=== PATIENT | female | born 1935 | race Caucasian/White ===

== ENCOUNTER 2018-01-26 16:09 | Outpatient (REF) | payer MEDICARE, BC, SELFPAY ==
[2018-01-26 20:01] LABS: HCT 36.7 % (36.0-46.0); HGB 11.8 g/dL (12.0-15.5); Mean Corp. HGB Concentration 32.2 g/dL (32.0-36.0); Mean Corpuscular Hemoglobin 32.1 pg (27.0-33.0); Mean Corpuscular Volume 99.7 fL (80-95); Mean Platelet Volume 11.8 fL (8.0-11.0); Platelet Count 149 x1000/uL (130-400); RBC 3.68 m/cumm (4.00-5.20); RBC Distribution Width 12.9 % (11.7-14.6); White Blood Cell Count 4.14 k/cumm (4.4-10.8)
[2018-01-26 20:15] LABS: Iron 46 ug/dL (50-175); Total Iron Binding Capacity 233 ug/dL (250-450); Transferrin Sat 20 % (15-50)
[2018-01-26 20:38] LABS: Anion Gap 10.4 mmol/L (3-11); BUN 26 mg/dL (7-18); CO2 24.6 mmol/L (21.0-32.0); CREATININE 1.05 mg/dL (0.55-1.02); Calcium 9.3 mg/dL (8.5-10.1); Chloride 109 mmol/L (98-107); Glucose 200 mg/dL (70-100); Potassium 3.7 mmol/L (3.5-5.1); Sodium 144 mmol/L (136-145); TSH 1.97 uIU/mL (0.358-3.74)
[2018-01-26 21:47] LABS: ESR 29 MM/HR (0-30)
[2018-01-26 22:51] LABS: Vitamin B12 824 pg/mL (193-986)
[2018-01-27 09:19] LABS: Vitamin D 25 Total 124.5 ng/ml (30-100)
== END 2018-01-26 16:29 ==
LOC: NCHCN 16:09
PROVIDERS: PCP Internal Medicine; Visit Provider Internal Medicine
DX: G31.84 Mild cognitive impairment of uncertain or unknown etiology (principal); M35.3 Polymyalgia rheumatica; M81.0 Age-related osteoporosis without current pathological fracture; Z95.2 Presence of prosthetic heart valve
CPT/HCPCS: 80048; 82306; 85027; 85652; 82607; 83540; 83550; 84443

== ENCOUNTER 2018-03-28 13:09 | Outpatient (REF) | payer MEDICARE, BC, SELFPAY ==
[2018-03-28 21:12] LABS: Vitamin D 25 Total 107.8 ng/ml (30-100)
== END 2018-03-28 13:29 ==
LOC: NCHCN 13:09
PROVIDERS: PCP Internal Medicine; Visit Provider Internal Medicine
DX: M81.0 Age-related osteoporosis without current pathological fracture (principal)
CPT/HCPCS: 82306

== ENCOUNTER 2018-04-04 16:06 | Outpatient (REF) | payer MEDICARE, BC, SELFPAY ==
[2018-04-06 11:02] LABS: HSV 1 DNA Result Negative; HSV 2 DNA Result Negative
[2018-04-06 14:24] LABS: Varicella Zoster DNA Result POSITIVE
== END 2018-04-04 16:26 ==
LOC: NCHCN 16:06
PROVIDERS: PCP Internal Medicine; Visit Provider Nurse Practitioner Family
DX: N89.9 Noninflammatory disorder of vagina, unspecified (principal); Z11.59 Encounter for screening for other viral diseases
CPT/HCPCS: 87529; 87798; 87070; 87205; 87480; 87510; 87660

== ENCOUNTER 2018-07-27 16:25 | Outpatient (REF) | payer MEDICARE, BC, SELFPAY ==
[2018-07-27 20:47] LABS: HCT 33.6 % (36.0-46.0); HGB 10.8 g/dL (12.0-15.5); Mean Corp. HGB Concentration 32.1 g/dL (32.0-36.0); Mean Corpuscular Hemoglobin 32.5 pg (27.0-33.0); Mean Corpuscular Volume 101.2 fL (80-95); Mean Platelet Volume 11.7 fL (8.0-11.0); Platelet Count 153 x1000/uL (130-400); RBC 3.32 m/cumm (4.00-5.20); RBC Distribution Width 12.4 % (11.7-14.6); White Blood Cell Count 3.41 k/cumm (4.4-10.8)
[2018-07-27 22:00] LABS: ESR 20 MM/HR (0-30)
== END 2018-07-27 16:45 ==
LOC: NCHCN 16:25
PROVIDERS: PCP Internal Medicine; Visit Provider Internal Medicine
DX: D64.9 Anemia, unspecified (principal); R42 Dizziness and giddiness; M35.3 Polymyalgia rheumatica
CPT/HCPCS: 85027; 85652; 86140

== ENCOUNTER 2019-01-05 12:03 | Outpatient (REF) | payer MEDICARE, BC, SELFPAY ==
[2019-01-05 19:27] LABS: Abs Immature Grans 0.01 k/cumm (0.0-0.09); Absolute Basophil Count 0.01 k/cumm (0.0-0.2); Absolute Eosinophil Count 0.12 k/cumm (0.0-0.7); Absolute Lymphocyte Count 1.33 k/cumm (1.2-3.4); Absolute Monocyte Count 0.42 k/cumm (0.11-0.7); Absolute Neutrophil Count 3.57 k/cumm (1.2-6.7); Basophils % 0.2; Eosinophils % 2.2; HCT 35.8 % (36.0-46.0); HGB 11.5 g/dL (12.0-15.5); Immature Grans % 0.2; Lymphocytes % 24.4; Mean Corp. HGB Concentration 32.1 g/dL (32.0-36.0); Mean Corpuscular Hemoglobin 31.7 pg (27.0-33.0); Mean Corpuscular Volume 98.6 fL (80-95); Mean Platelet Volume 11.4 fL (8.0-11.0); Monocytes % 7.7; Neutrophils % 65.3; Platelet Count 155 x1000/uL (130-400); RBC 3.63 m/cumm (4.00-5.20); White Blood Cell Count 5.46 k/cumm (4.4-10.8)
[2019-01-05 19:54] LABS: Ferritin 157 ng/mL (8-388); TSH 1.98 uIU/mL (0.36-3.74)
[2019-01-10 09:59] LABS: Methylmalonic Acid 0.16 nmol/mL (<=0.40)
== END 2019-01-05 12:23 ==
LOC: NCHCN 12:03
PROVIDERS: PCP Internal Medicine; Visit Provider Internal Medicine
DX: K90.0 Celiac disease (principal); I10 Essential (primary) hypertension; R53.83 Other fatigue; D64.9 Anemia, unspecified
CPT/HCPCS: 80186; 83090; 82728; 84443; 85025

== ENCOUNTER 2019-05-22 16:27 | Outpatient (REF) | payer MEDICARE, BC, SELFPAY | END 2019-05-22 16:47 | LOC: NCHCN 16:27 | PROVIDERS: PCP Internal Medicine; Visit Provider Nurse Practitioner Family | DX: N89.8 Other specified noninflammatory disorders of vagina (principal) | CPT/HCPCS: 87480; 87510; 87660 ==

== ENCOUNTER 2019-09-21 16:06 | Outpatient (REF) | payer MEDICARE, BC, SELFPAY ==
[2019-09-21 19:53] LABS: HCT 34.5 % (36.0-46.0); HGB 11.3 g/dL (11.2-15.7); MCH 32.7 pg (27.0-33.0); MCHC 32.8 % (32.0-36.0); MCV 99.7 fL (80-95); MPV 11.9 fL (8.0-11.0); Platelet Count 138 10^3/uL (130-400); RBC 3.46 10^6/uL (3.93-5.22); RDW 12.9 % (11.7-14.6); RDW-SD 46.8 fL
[2019-09-21 20:43] LABS: Anion Gap 9.7 mmol/L (3-11); BUN 20 mg/dL (7-18); CO2 25.3 mmol/L (21.0-32.0); CREATININE 1.06 mg/dL (0.55-1.02); Calcium 8.6 mg/dL (8.5-10.1); Chloride 108 mmol/L (98-107); Estimated GFR 49.51 (mL/min/1.73m2); Glucose 90 mg/dL (74-106); Potassium 4.3 mmol/L (3.5-5.1); Sodium 143 mmol/L (136-145); TSH 1.62 uIU/mL (0.36-3.74); Vitamin B12 899 pg/mL (193-986)
[2019-09-21 21:13] LABS: NT-proBNP 2050 pg/mL (<300)
== END 2019-09-21 16:26 ==
LOC: NCHCN 16:06
PROVIDERS: PCP Internal Medicine; Visit Provider Internal Medicine
DX: R06.09 Other forms of dyspnea (principal); I48.0 Paroxysmal atrial fibrillation; D64.9 Anemia, unspecified; J98.4 Other disorders of lung
CPT/HCPCS: 80048; 85027; 82607; 83880; 84443

== ENCOUNTER 2020-03-21 17:10 | Outpatient (REF) | payer MEDICARE, BC, SELFPAY ==
[2020-03-21 19:19] LABS: HCT 34.6 % (36.0-46.0); HGB 11.5 g/dL (11.2-15.7); MCH 32.2 pg (27.0-33.0); MCHC 33.2 % (32.0-36.0); MCV 96.9 fL (80-95); MPV 11.4 fL (8.0-11.0); Platelet Count 143 10^3/uL (130-400); RBC 3.57 10^6/uL (3.93-5.22); RDW 12.6 % (11.7-14.6); RDW-SD 45.2 fL; WBC 5.41 10^3/uL (4.4-10.8)
[2020-03-21 19:30] LABS: Albumin 3.7 g/dL (3.4-5.0); Anion Gap 11.6 mmol/L (3-11); BUN 40 mg/dL (7-18); CO2 23.4 mmol/L (21.0-32.0); CREATININE 1.2 mg/dL (0.55-1.02); Calcium 9.2 mg/dL (8.5-10.1); Chloride 107 mmol/L (98-107); Glucose 103 mg/dL (74-106); NT-proBNP 1514 pg/mL (<300); PHOSPHORUS 3.8 mg/dL (2.6-4.7); Potassium 3.3 mmol/L (3.5-5.1); Sodium 142 mmol/L (136-145)
== END 2020-03-21 17:30 ==
LOC: NCHCN 17:10
PROVIDERS: PCP Internal Medicine; Visit Provider Internal Medicine
DX: I50.9 Heart failure, unspecified (principal); D64.9 Anemia, unspecified
CPT/HCPCS: 80069; 85027; 83880

== ENCOUNTER 2020-04-12 18:10 | Outpatient (REF) | payer MEDICARE, BC, SELFPAY ==
[2020-04-12 16:08] LABS: Potassium 5.2 mmol/L (3.5-5.1)
== END 2020-04-12 18:11 | disposition home or self-care (01) ==
LOC: NCHCN 18:10
PROVIDERS: PCP Internal Medicine; Visit Provider Internal Medicine
DX: E87.6 Hypokalemia (principal)
CPT/HCPCS: 84132

== ENCOUNTER 2020-04-26 18:32 | Outpatient (REF) | payer MEDICARE, BC, SELFPAY ==
[2020-04-26 18:38] LABS: Abs Immature Grans 0.01 10^3/uL (0.0-0.06); Absolute Basophil Count 0.02 10^3/uL (0.0-0.2); Absolute Eosinophil Count 0.06 10^3/uL (0.0-0.7); Absolute Lymphocyte Count 1.62 10^3/uL (1.2-3.4); Absolute Monocyte Count 0.46 10^3/uL (0.1-0.8); Absolute Neutrophil Count 3.53 10^3/uL (1.2-6.7); Basophils % 0.4; Eosinophils % 1.1; HGB 11.7 g/dL (11.2-15.7); Immature Grans % 0.2; Lymphocytes % 28.4; MCH 32.6 pg (27.0-33.0); MCHC 32.5 % (32.0-36.0); MCV 100.3 fL (80-95); MPV 10.2 fL (8.0-11.0); Monocytes % 8.1; Neutrophils % 61.8; Nucleated RBC 0 %; Platelet Count 171 10^3/uL (130-400); RBC 3.59 10^6/uL (3.93-5.22); RDW 12.1 % (11.7-14.6); RDW-SD 45.3 fL
[2020-04-26 19:34] LABS: ALT 25 U/L (14-59); AST 17 U/L (15-37); Albumin 3.6 g/dL (3.4-5.0); Alkaline Phosphatase 67 U/L (46-116); Anion Gap 11.3 mmol/L (3-11); BUN 48 mg/dL (7-18); Bilirubin, Total 0.3 mg/dL (0.2-1.0); CO2 20.7 mmol/L (21.0-32.0); CREATININE 1.6 mg/dL (0.55-1.02); Calcium 9.5 mg/dL (8.5-10.1); Chloride 109 mmol/L (98-107); Estimated GFR 30.78 (mL/min/1.73m2); Glucose 90 mg/dL (74-106); Potassium 5.1 mmol/L (3.5-5.1); Sodium 141 mmol/L (136-145); Total Protein 7.3 g/dL (6.4-8.2)
== END 2020-04-26 18:33 | disposition home or self-care (01) ==
LOC: NCHCN 18:32
PROVIDERS: PCP Internal Medicine; Visit Provider Physician Assistant
DX: R19.7 Diarrhea, unspecified (principal)
CPT/HCPCS: 80053; 85025

== ENCOUNTER 2020-07-02 14:44 | Outpatient (REF) | payer MEDICARE, BC, SELFPAY ==
[2020-07-02 19:05] LABS: Anion Gap 8.7 mmol/L (3-11); BUN 34 mg/dL (7-18); CO2 29.3 mmol/L (21.0-32.0); CREATININE 1.4 mg/dL (0.55-1.02); Calcium 9.1 mg/dL (8.5-10.1); Chloride 104 mmol/L (98-107); Estimated GFR 35.91 (mL/min/1.73m2); Glucose 172 mg/dL (74-106); Potassium 4.5 mmol/L (3.5-5.1); Sodium 142 mmol/L (136-145)
== END 2020-07-02 14:45 | disposition home or self-care (01) ==
LOC: NCHCN 14:44
PROVIDERS: PCP Internal Medicine; Visit Provider Internal Medicine
DX: I10 Essential (primary) hypertension (principal)
CPT/HCPCS: 80048

== ENCOUNTER 2021-07-04 18:35 | Outpatient (REF) | payer MEDICARE, SELFPAY ==
[2021-07-04 19:00] LABS: HCT 36.3 % (36.0-46.0); HGB 11.7 g/dL (11.2-15.7); MCH 33.1 pg (27.0-33.0); MCHC 32.2 % (32.0-36.0); MCV 103 fL (80-95); MPV 11.3 fL (8.0-11.0); Platelet Count 139 10^3/uL (130-400); RBC 3.54 10^6/uL (3.93-5.22); RDW 12.9 % (11.7-14.6); RDW-SD 48.7 fL; WBC 8.17 10^3/uL (4.4-10.8)
[2021-07-04 19:03] LABS: Albumin 3.5 g/dL (3.4-5.0); BUN 35 mg/dL (7-18); CREATININE 1.3 mg/dL (0.55-1.02); Calcium 8.4 mg/dL (8.5-10.1); Chloride 108 mmol/L (98-107); Estimated GFR 39.02 (mL/min/1.73m2); Glucose 100 mg/dL (74-106); Magnesium 2.9 mg/dL (1.8-2.4); PHOSPHORUS 3.9 mg/dL (2.6-4.7); Potassium 4.4 mmol/L (3.5-5.1); Sodium 141 mmol/L (136-145)
== END 2021-07-04 18:36 | disposition home or self-care (01) ==
LOC: NCHCN 18:35
PROVIDERS: PCP Internal Medicine; Visit Provider Internal Medicine
DX: I10 Essential (primary) hypertension (principal); I50.9 Heart failure, unspecified; R10.32 Left lower quadrant pain
CPT/HCPCS: 80069; 85027; 83735

== ENCOUNTER 2021-12-24 17:51 | Outpatient (REF) | payer MEDICARE, SELFPAY ==
[2021-12-24 20:36] LABS: HCT 38.4 % (36.0-46.0); HGB 12.3 g/dL (11.2-15.7); MCH 32.4 pg (27.0-33.0); MCV 101 fL (80-95); MPV 11.1 fL (8.0-11.0); Platelet Count 136 10^3/uL (130-400); RDW 13.2 % (11.7-14.6); WBC 5.57 10^3/uL (4.4-10.8)
[2021-12-24 20:40] LABS: ALT 19 U/L (14-59); AST 21 U/L (15-37); Albumin 3.8 g/dL (3.4-5.0); Alkaline Phosphatase 81 U/L (46-116); Anion Gap 7.5 mmol/L (3-11); BUN 38 mg/dL (7-18); Bilirubin, Total 0.3 mg/dL (0.2-1.0); CO2 24.5 mmol/L (21.0-32.0); CREATININE 1.5 mg/dL (0.55-1.02); Calcium 8.8 mg/dL (8.5-10.1); Chloride 108 mmol/L (98-107); Estimated GFR 33.94 (mL/min/1.73m2); Glucose 93 mg/dL (74-106); Lipase 381 U/L (73-393); Potassium 4.5 mmol/L (3.5-5.1); Sodium 140 mmol/L (136-145); Total Protein 7.8 g/dL (6.4-8.2)
== END 2021-12-24 17:52 | disposition home or self-care (01) ==
LOC: NCHCN 17:51
PROVIDERS: PCP Internal Medicine; Visit Provider Internal Medicine
DX: R11.0 Nausea (principal); I50.9 Heart failure, unspecified; R42 Dizziness and giddiness
CPT/HCPCS: 80053; 83690; 85027

== ENCOUNTER 2022-12-24 14:14 | Outpatient (REF) | payer MEDICARE, BC, SELFPAY ==
[2022-12-24 19:12] LABS: Abs Immature Grans 0.01 10^3/uL (0.0-0.06); Absolute Basophil Count 0.02 10^3/uL (0.0-0.2); Absolute Eosinophil Count 0.09 10^3/uL (0.0-0.7); Absolute Lymphocyte Count 1.52 10^3/uL (1.2-3.4); Absolute Monocyte Count 0.36 10^3/uL (0.1-0.8); Absolute Neutrophil Count 3.62 10^3/uL (1.2-6.7); Basophils % 0.4; Eosinophils % 1.6; HCT 38.9 % (36.0-46.0); HGB 12.8 g/dL (11.2-15.7); Immature Grans % 0.2; MCH 33.2 pg (27.0-33.0); MCHC 32.9 % (32.0-36.0); MCV 101 fL (80-95); MPV 11.3 fL (8.0-11.0); Monocytes % 6.4; Neutrophils % 64.4; Platelet Count 138 10^3/uL (130-400); RBC 3.86 10^6/uL (3.93-5.22); RDW 12.8 % (11.7-14.6); RDW-SD 48.2 fL; WBC 5.62 10^3/uL (4.4-10.8)
[2022-12-24 19:37] LABS: ALT 19 U/L (14-59); AST 23 U/L (15-37); Albumin 3.6 g/dL (3.4-5.0); Alkaline Phosphatase 88 U/L (46-116); Anion Gap 5.5 mmol/L (3-11); BUN 20 mg/dL (7-18); Bilirubin, Total 0.4 mg/dL (0.2-1.0); CO2 27.5 mmol/L (21.0-32.0); CREATININE 1.1 mg/dL (0.55-1.02); Calcium 9.3 mg/dL (8.5-10.1); Chloride 106 mmol/L (98-107); Estimated GFR 48.94 (mL/min/1.73m2); Glucose 100 mg/dL (74-106); Potassium 4.8 mmol/L (3.5-5.1); Sodium 139 mmol/L (136-145); Total Protein 7.5 g/dL (6.4-8.2)
[2022-12-24 19:41] LABS: NT-proBNP 1864 pg/mL (<300)
== END 2022-12-24 14:15 | disposition home or self-care (01) ==
LOC: NCHCN 14:14
PROVIDERS: PCP Internal Medicine; Visit Provider Internal Medicine
DX: I50.9 Heart failure, unspecified (principal); Z79.01 Long term (current) use of anticoagulants
CPT/HCPCS: 80053; 83880; 85025

== ENCOUNTER 2023-09-01 17:20 | Outpatient (REF) | payer MEDICARE, BC, SELFPAY ==
[2023-09-01 20:37] LABS: Anion Gap 6.4 mmol/L (3-11); BUN 25 mg/dL (7-18); CO2 28.6 mmol/L (21.0-32.0); CREATININE 1.1 mg/dL (0.55-1.02); Calcium 9.4 mg/dL (8.5-10.1); Chloride 105 mmol/L (98-107); Estimated GFR 48.94 (mL/min/1.73m2); Glucose 111 mg/dL (74-106); NT-proBNP 3122 pg/mL (<300); Potassium 4.6 mmol/L (3.5-5.1); Sodium 140 mmol/L (136-145)
== END 2023-09-01 17:21 | disposition home or self-care (01) ==
LOC: NCHCN 17:20
PROVIDERS: PCP Internal Medicine; Visit Provider Physician Assistant
DX: I50.9 Heart failure, unspecified (principal)
CPT/HCPCS: 80048; 83880

== ENCOUNTER 2023-12-01 17:19 | Emergency (ER) | payer MEDICARE, BC, SELFPAY ==
[2023-12-01 17:27] VITALS: BP 184/85; PULSE 80; RESP 24; TEMP 36.3; O2SAT 97
--- NOTE | 2023-12-01 17:58 | W.ED.GENAD ---
Discharge Plan Disposition Specific Acute Inpt Facility: [facility] Condition: Stable Discharge Details Chief Complaint: Urinary Clinical Impression: Acute urinary retention Primary Care Provider: Wil Suarez ED Provider: Omega Robles Home Meds and New Rx's Prescriptions: No Action Eliquis 2.5 mg tablet 2.5 mg PO BID metoprolol tartrate 100 MG tablet 100 mg PO BID alendronate [Fosamax] 70 MG tablet 70 mg PO .WEEKLY losartan-hydrochlorothiazide 1 EACH tablet 1 tab PO DAILY HPI General Mode of arrival: ambulatory. Date/Time Provider Initiated Documentation: 12/01/23 17:26. Limitations to Documentation: no limitations. Information obtained by: patient. History of Present Illness 88 year old F presents to the emergency department with the chief complaint of Unable to catheterize herself, described as moderate, Patient started experiencing this day(s) (1) and it has been constant. No relieving factors improve symptom(s), No exacerbating factors reported . Patient notes no other symptoms.. Patient did receive the following treatments prior to arrival, none Related Data Home Medications ?Medication ?Instructions ?Recorded ?Confirmed alendronate 70 mg tablet (Fosamax) 70 mg PO .WEEKLY 09/13/12 12/01/23 losartan 100 1 tab PO DAILY 09/13/12 12/01/23 mg-hydrochlorothiazide 25 mg tablet metoprolol tartrate 100 mg tablet 100 mg PO BID 09/13/12 12/01/23 apixaban 2.5 mg tablet (Eliquis) 2.5 mg PO BID 11/28/20 12/01/23 Allergies Allergy/AdvReac Type Severity Reaction Status Date / Time No Known Allergies Allergy Unverified 12/01/23 18:31 General Stated Complaint: Urinary CHINYERE: 3 Review of Systems All systems reviewed & are unremarkable except as noted in HPI and below Constitutional Constitutional: Denies chills, Denies fever(s) and Denies weakness Cardiovascular Cardiovascular: Denies chest pain and Denies dyspnea Respiratory Respiratory: Denies cough and Denies dyspnea Gastrointestinal Gastrointestinal: Denies nausea and Denies vomiting Integumentary/Breasts Skin/Breast: Denies rash Neurologic Neurologic: Denies weakness Exam Const General: no acute distress Orientation: alert HENMT Head: normal to inspection Ears: external ears normal General nose exam: external nose normal Mouth: moist mucous membranes Eyes General: appearance normal, both eyes and all related structures Neck Neck: normal visual inspection Resp Effort & Inspection: normal respiratory effort and able to speak in complete sentences Cardio Rate: regular rate GI Palpation: nontender Skin General skin exam: no rashes or lesions noted Neuro General: patient alert and patient oriented x3 Extrem General: normal to inspection Psych Mental Status: mental status grossly normal Course Vital Signs Vital signs: Vital Signs Temperature 36.3 C L 12/01/23 17: Pulse 80 12/01/23 17: Respiratory Rate 24 12/01/23 17:27 Blood Pressure 184/85 H 12/01/23 17:27 Pulse Oximetry 97 12/01/23 17:27 Temperature 36.3 C L 12/01/23 17: Pulse 80 12/01/23 17: Respiratory Rate 24 12/01/23 17:27 Blood Pressure 184/85 H 12/01/23 17:27 Blood Pressure Position Sitting 12/01/23 17:27 Pulse Oximetry 97 12/01/23 17:27 Medical Decision Making 88-year-old female who had a history of bladder cancer and had her bladder removed per patient and then had a makeshift bladder made in her abdomen for which she catheterized over abdominal wall, comes in with inability to catheterize herself since last night. She denies any fevers or severe pain. She has no vomiting. The area of the stoma is on the right lateral abdomen, there is no erythema or warmth. No drainage. There is distention of the abdomen in this area which I suspect is from distended surgical bladder, Will have nursing attempt to catheterize this to retrieve urine. despite inserting a 12 frrench and 14 nigerian urinary catheter into the stoma 2-3 inches no urine would come out, will obtain CT to evaluate for any potential anatomic abnormalities CT shows large distended bladder pouch in the right abdomen with hydronephrosis of the left kidney.Patient is stable, she does state that this similar issue happened 3 years ago where she went to [facility] and then had to be transferred to [facility] and have an operation to repair it. Will have nursing attempt again to recannulized but I feel like the connection with the stoma and the bladder is been disrupted so we will reach out to [facility] urology for potential transfer. nursing briefly able to get some urine out but then it stopped, unable to recatheterize. Discussed case with Dr. Garcia from [facility] who accepts to their ED for potential IR drainage. Imaging Data Radiologic Study: Attestation: I personally reviewed and interpreted this imaging study as follows: Imaging: CT Scan Radiologist's impression: IMPRESSION: 1. Urinary diversion with a large distended bladder pouch in the right abdomen as detailed above. 2. Severe hydronephrosis of the left [place] kidney. 3. Constipation. 4. Multiple old compression fractures involving the lumbar spine. 5. 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 Lab Data Lab results reviewed: Yes I reviewed the patient's lab results. Quality:SDOH Health Related Social Needs: No Data to Display PFSH All Active Problems (Updated 12/01/23 @ 20:49 by Omega Robles MD) Acute urinary retention (Acute) Hx of cataract surgery (Chronic) Hx of breast biopsy (Acute) Hx of elbow replacement (Acute) H/O coronary angiogram (Acute) History of total abdominal hysterectomy and bilateral salpingo-oophorectomy (Acute) Sacroiliitis (Acute) SVT (supraventricular tachycardia) (Chronic) Atrial fibrillation (Chronic) Asthma (Chronic) Celiac sprue (Acute) Peripheral neuropathy (Acute) Hydronephrosis (Acute) Osteoporosis (Chronic) Hypertension (Chronic) Impacted cerumen of both ears (Acute) Sensorineural hearing loss, bilateral (Acute 08/10/13) Sensorineural hearing loss (Acute 06/16/13) Impacted cerumen (Acute 06/16/13) Conductive hearing loss, external ear (Acute 08/10/13) Family History Father No problems noted. Mother No problems noted. Daughter Otosclerosis Social History Smoking/Tobacco Use Status: Never Smoking risk assessment performed?: Yes Alcohol Intake: never Drug use: Never Substance use type: does not use Household members: none Housing: apartment current occupation: retired What is your relationship status?: Panel score (0-1 are the most socially isolated patients): 0 Do you feel safe at home: Yes Do you feel safe in your relationship?: Yes
--- NOTE | 2023-12-01 18:15 | DI.CT_ITS ---
Exam(s) CT ABDOMEN PELVIS WO EXAM: CT ABDOMEN PELVIS WO CLINICAL HISTORY: unable to cath surgically made bladder. TECHNIQUE: Imaging Protocol: Axial computed tomography images with coronal and sagittal reformatted images were created and reviewed CONTRAST MATERIAL: Intravenous: none Oral: None COMPARISON: No exams were available for comparison FINDINGS: VISUALIZED LUNG BASES: Mild atelectasis in the right lung base. No pleural effusions. Cardiomegaly. No pericardial effusion. Diameter of the partially visualized descending thoracic aorta is enlarge d, measuring 4 cm. ABDOMEN: There is no ascites. LIVER: There are no obvious focal hepatic lesions evident of this noninfused study. GALLBLADDER/BILIARY: No obvious gallbladder pathology. CBD is not dilated. PANCREAS: No evidence of pancreatic mass nor dilatation of the pancreatic duct. SPLEEN: Spleen is not enlarged. No obvious intrasplenic lesions. ADRENALS: There are no significant adrenal masses. KIDNEYS:There is severe hydronephrosis of the left kidney only thin remaining cortical mantle. Also left hydroureter with left ureter measuring 8 millimeters. There has been prior cystectomy and there is diversion towards a large distended neobladder in the right-side of the abdomen which measures 16 .5 cm craniocaudal X 10 cm wide x 12 cm AP. The right kidney is slightly displaced upwards by this l arge distended right-sided surgically created bladder.. ABDOMINAL AORTA: Abdominal aorta is calcified. Upper normal diameter. Common iliac arteries are ted cified without significant aneurysmal dilatation. LYMPH NODES: There is no retroperitoneal nor paraaortic adenopathy. ABDOMINAL WALL: No evidence of significant anterior abdominal wall nor inguinal hernia. GI: There is no evidence of bowel obstruction, free air, nor abscess. PELVIS: LYMPH NODES: There is no intrapelvic nor inguinal adenopathy. GI: No evidence of appendicitis.Sigmoid diverticuli without evidence of obvious acute diverticulitis. URINARY BLADDER: Prior cystectomy REPRODUCTIVE: Prior hysterectomy. No abnormal adnexal masses. OSSEOUS: No compression fractures noted. Most severe is at L3 level. These do not appear acute. Al so multilevel facet arthropathy in the lumbar spine IMPRESSION: 1. Urinary diversion with a large distended surgical graded bladder in the right-side of the abdomen measuring 16.5 x 10 x 12 cm and there is severe hydronephrosis of the left kidney. No hydronephrosis of the right kidney. 2. Sigmoid diverticulosis without evidence of acute diverticulitis. 3. Previous cystectomy and hysterectomy. No evidence of bowel obstruction. No ascites. Other findings as above. RADIATION DOSE DELIVERED: 369.63mGy.cm Total DLP DATA REPOSITORY: All CT scans at this facility are submitted to the National Radiology Data Registry (NRDR) Dose Index Registry (DIR) with the [employer] (ACR). RADIATION OPTIMIZATION: All CT scans at this facility use at least one of these dose optimization te chniques: automated exposure control; mA and/or kV adjustment per patient size (includes targeted exa ms where dose is matched to clinical indication); or iterative reconstruction.
[2023-12-01] MEDS: Ondansetron O.D.T. 4 MG TABEF PO (19:28)
[2023-12-01 19:54] LABS: Abs Immature Grans 0.06 10^3/uL (0.0-0.06); Absolute Basophil Count 0.04 10^3/uL (0.0-0.2); Absolute Eosinophil Count 0.05 10^3/uL (0.0-0.7); Absolute Lymphocyte Count 1.37 10^3/uL (1.2-3.4); Absolute Neutrophil Count 8.33 10^3/uL (1.2-6.7); Basophils % 0.4 %; Eosinophils % 0.5 %; HCT 40.1 % (36.0-46.0); HGB 13.2 g/dL (11.2-15.7); Immature Grans % 0.6 %; Lymphocytes % 13.1 %; MCH 33.9 pg (27.0-33.0); MCHC 32.9 % (32.0-36.0); MCV 103 fL (80-95); MPV 10.7 fL (8.0-11.0); Monocytes % 5.7 %; Neutrophils % 79.7 %; Platelet Count 177 10^3/uL (130-400); RBC 3.89 10^6/uL (3.93-5.22); RDW 13.3 % (11.7-14.6); RDW-SD 50.5 fL; WBC 10.45 10^3/uL (4.4-10.8)
[2023-12-01 20:04] LABS: PTT Activated 24.2 sec (23.6-32.8); Prothrombin Time 10.5 sec (9.1-11.1)
--- NOTE | 2023-12-01 20:05 | DI.VRAD_ITS ---
PROCEDURE INFORMATION: Exam: CT Abdomen And Pelvis Without Contrast Exam date and time: 12/01/2023 7:19 PM Age: 88 years old Clinical indication: Other: Unable to cath surgically made bladder TECHNIQUE: Imaging protocol: Computed tomography of the abdomen and pelvis without contrast. COMPARISON: No relevant prior studies available. FINDINGS: Lungs: Bilateral lower lobe scarring/subsegmental atelectatic changes are identified. Liver: Normal. No mass. Gallbladder and biliary ducts: Normal. No calcified stones. No ductal dilation. Pancreas: Normal. No ductal dilation. Spleen: Normal. No splenomegaly. Adrenal glands: Normal. No mass. Kidneys and ureters: Severe left-sided hydronephrosis is noted. Stomach and bowel: Fecal debris is seen scattered throughout the colon consistent with constipation. Appendix: No evidence of appendicitis. Intraperitoneal space: Unremarkable. No free air. No significant fluid collection. Vasculature: There is mild aneurysmal dilatation of the distal descending thoracic aorta which measures 4.1 cm by 4.2 cm in greatest diameter. Aortic calcifications are noted. Lymph nodes: Unremarkable. No enlarged lymph nodes. Urinary bladder: A large slightly lobulated fluid density structure is identified in the right abdomen which measures 16 cm by 10 cm by 10 cm in greatest dimension. This presumably represents urinary diversion and bladder pouch. Surgical clips are identified in the pelvis presumably secondary to cystectomy. Reproductive: Unremarkable as visualized. Bones/joints: A levoscoliosis is noted involving the lumbar spine. Old compression fractures are identified involving multiple lumbar vertebral bodies with the most severe affecting the L3 vertebral body. Soft tissues: Unremarkable. IMPRESSION: 1. Urinary diversion with a large distended bladder pouch in the right abdomen as detailed above. 2. Severe hydronephrosis of the left [place] kidney. 3. Constipation. 4. Multiple old compression fractures involving the lumbar spine. 5. 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 Dictated and Authenticated by: Hipolito Tirado MD. Ordering:MATEUSZ Duff MD
[2023-12-01 20:15] LABS: ALT 19 U/L (14-59); AST 31 U/L (15-37); Albumin 3.8 g/dL (3.4-5.0); Alkaline Phosphatase 82 U/L (46-116); Anion Gap 12.6 mmol/L (3-11); BUN 24 mg/dL (7-18); Bilirubin, Total 0.62 mg/dL (0.2-1.0); CO2 23.4 mmol/L (21.0-32.0); CREATININE 1.1 mg/dL (0.55-1.02); Calcium 9.8 mg/dL (8.5-10.1); Chloride 107 mmol/L (98-107); Estimated GFR 48.63 (mL/min/1.73m2); Glucose 119 mg/dL (74-106); Magnesium 1.9 mg/dL (1.8-2.4); Potassium 4.5 mmol/L (3.5-5.1); Sodium 143 mmol/L (136-145); Total Protein 8.2 g/dL (6.4-8.2)
[2023-12-01 21:05] VITALS: BP 171/67; PULSE 75; RESP 18; TEMP 36.4; O2SAT 99
[2023-12-01 21:45] VITALS: BP 171/67; PULSE 75; RESP 18; TEMP 36.4; O2SAT 99
[2023-12-01 22:34] LABS: Bilirubin Negative (Negative); Blood Negative (Negative); Clarity Clear (Clear); Glucose Negative (Negative); Ketones Negative (Negative); Leukocyte Esterase Negative (Negative); Nitrite Negative (Negative); Specific Gravity 1.015 (1.005-1.025); Urobilinogen 0.2 mg/dL (Up to 0.2)
[2023-12-01 22:44] LABS: Bacteria Negative HPF (Negative); C & S Indicated? No; Crystals Negative HPF (Negative); Epithelial Cells Negative HPF (Negative); Mucus Negative (Negative); WBC 0-2 HPF (0-5)
== END 2023-12-01 21:21 | disposition short-term general hospital (02) ==
PROVIDERS: Emergency Provider Emergency Medicine; PCP Internal Medicine
DX: R33.8 Other retention of urine (principal); N13.2 Hydronephrosis with renal and ureteral calculous obstruction; I48.91 Unspecified atrial fibrillation; Z93.6 Other artificial openings of urinary tract status; Z90.6 Acquired absence of other parts of urinary tract; Z79.01 Long term (current) use of anticoagulants; Z85.51 Personal history of malignant neoplasm of bladder
CPT/HCPCS: 80053; 99285; 74176; 81003; 81015; 83735; 85025; 85610; 85730

== ENCOUNTER 2023-12-13 08:08 | Emergency (ER) | payer MEDICARE, BC, SELFPAY ==
[2023-12-13] VITALS (19 sets, daily range): BP systolic 143–180; BP diastolic 35–108; PULSE 53–75; RESP 14–20; TEMP 36.4–36.9; O2SAT 93–99
--- NOTE | 2023-12-13 08:00 | RT.EKG_ITS ---
APPROVED REPORT Exam: Resting ECG Reason for Exam: weak, feeling ill Patient Location: E HR:74 bpm ECG Measurements Heart Rate 74 AXIS ME 202 P 45 QRSd 108 QRS -39 QT 403 T 11 QTc 448 Conclusion Sinus rhythm...normal P axis, V-rate 60- 99 Left ventricular hypertrophy...multiple LVH criteria Normal sinus rhythm at a rate of 74 with interventricular conduction delay QRS of 108 milliseconds. First-degree AV block. QTc within normal limits. Left axis deviation no signs of LVH. No T wave in versions beyond the lead III. No prior for comparison. No acute injury pattern.
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
[2023-12-13 08:46] LABS: Abs Immature Grans 0.02 10^3/uL (0.0-0.06); Absolute Basophil Count 0.02 10^3/uL (0.0-0.2); Absolute Eosinophil Count 0.03 10^3/uL (0.0-0.7); Absolute Lymphocyte Count 0.92 10^3/uL (1.2-3.4); Absolute Monocyte Count 0.49 10^3/uL (0.1-0.8); Absolute Neutrophil Count 5.31 10^3/uL (1.2-6.7); Basophils % 0.3 %; Eosinophils % 0.4 %; HCT 35.5 % (36.0-46.0); HGB 11.8 g/dL (11.2-15.7); Immature Grans % 0.3 %; Lymphocytes % 13.5 %; MCHC 33.2 % (32.0-36.0); MCV 102 fL (80-95); Monocytes % 7.2 %; Neutrophils % 78.3 %; Platelet Count 177 10^3/uL (130-400); RBC 3.47 10^6/uL (3.93-5.22); RDW 13.3 % (11.7-14.6); RDW-SD 50.5 fL; WBC 6.79 10^3/uL (4.4-10.8)
--- NOTE | 2023-12-13 09:01 | ED.GENADUL_ITS ---
Discharge Plan Disposition Patient Disposition: Home Discharge Details Clinical Impression: Abdominal pain, History of urostomy Primary Care Provider: Wil Suarez ED Provider: Blade Mesa Home Meds and New Rx's Prescriptions: Continued Eliquis 2.5 mg tablet 2.5 mg PO BID metoprolol tartrate 100 MG tablet 100 mg PO BID losartan-hydrochlorothiazide 1 EACH tablet 1 tab PO DAILY Discharge Instructions Instructions: Abdominal pain Additional Instructions: You are seen in the emergency department for your abdominal pain. Your CAT scan showed no complications from your recent drainage procedure. The urologist recommended that you follow-up with [facility]. You are being instructed on how to flush your drain. Please return to the emergency department if you do not urinate once every 8 hours while awake. Please also return if you develop fevers chills nausea or vomiting. Discharge Data Discharge Date/Time-TO BE ENTERED AT DEPARTURE: 12/13/23 13:41 HPI General Date/Time Provider Initiated Documentation: 12/13/23 08:28 . HPI Narrative: MDM This is an overall well-appearing afebrile and not tachycardic 79-year-old female with weakness poor output from her ostomy concerning for collection system dilatation for which patient undergo CT scan. No pain out of proportion to suggest necrotizing soft tissue infection. Acute electrolyte abnormality certainly a possibility. Retroperitoneal bleed given apixaban use is certainly a possibility. Patient's ostomy site does not appear infected. Certainly possible that she could have intra-abdominal infection. Will order urinalysis to assess for UTI. No cough to suggest pneumonia. Given weakness will obtain troponins to assess for myocardial injury. No headache to suggest meningitis. No focal neurological deficits to suggest CVA so I did not feel that the patient required MRI. No nuchal rigidity to suggest meningitis and no indication for lumbar puncture. No tonic-clonic activity to suggest seizure so no indication for EEG. Given right lower quadrant tenderness appendicitis is in the differential. No left lower quadrant tenderness to suggest diverticulitis. 9 AM CBC lacks anemia thrombocytopenia and leukocytosis. 9:27 PM Initial troponin reassuring at 9 ng/L. Comprehensive metabolic panel showing no KIRAN. Mild hyperglycemia but normal anion gap and bicarbonate??not consistent with DKA. No LFT abnormalities and no electrolyte abnormalities. 10:20 AM Reassuring delta troponin will cancel third troponin. Urinalysis showing trace blood small leuk esterase. Nitrite negative. Microscopy with moderate bacteriuria. 11:[address] scan shows persistent severe hydronephrosis of left kidney mild right-sided hydro. No obvious radiopaque calcifications. Will reach out to [facility] urology. 1:11 PM I spoke with Dr. Balbuena from urology at [facility]. He felt that the patient was intermittently having blockages in her catheter secondary to mucus. He advised irrigation. About the patient. She did not try to irrigate this but had had experiences with mucus in the past. I have asked the patient's nurse Julissa to instruct her on irrigation.Dr. Balbuena encouraged her to follow-up with [facility] as she had to have an appointment tomorrow which she canceled. I asked patient to follow-up with urology. We discussed return indications including any fevers worsening discomfort at her catheter site and any other concerns. Otherwise advised primary care follow-up next week. Patient understood her return indications and is discharged with empiric trial of expectant outpatient management. I reviewed the discharge instructions from [facility] earlier this month and there are instructions on how to empty and flush the drain. Patient's nurse Julissa will discharge her with several 3 cc flushes. Chronic conditions affecting the care of the patient: Atrial fibrillation History obtained from an outside historian: N/A External record review: [facility] EMR Diagnostic interpretations performed by me: Per my independent interpretation EKG shows: Normal sinus rhythm at a rate of 74 with interventricular conduction delay QRS of 108 milliseconds. First-degree AV block. QTc within normal limits. Left axis deviation no signs of LVH. No T wave inversions beyond the lead III. No prior for comparison. No acute injury pattern. ]Medications: N/A Social determinants of health affecting disposition: N/A Management discussed with: Urology Treatment/interventions considered: N/A Response to therapies provided: N/A HPI This is a 79-year-old female with history of atrial fibrillation on apixaban interstitial cystitis status post right colonic pouch in the s and ostomy in place. She says that she was able to drain 450 cc from her leg bag this morning. She reports that she is generally felt weak. She reports she has had decreased urinary flow. She is endorsing nausea but denies vomiting chest pain fevers cough shortness of breath. She reports that she had an IR procedure performed 10 days ago at [facility]. She has never had ureterolithiasis. She took her home meds this morning. She denies any medication changes. She denies routine tobacco, ethanol, and illicits. Exam General: Well-appearing in no acute distress speaking in complete sentences. Head: Normocephalic, atraumatic. Eye: Extraocular eye movements intact. No conjunctival injection. No scleral icterus. Ear, nose, mouth, throat: Grossly normal inspection. Normal voice, handling secretions normally. Neck: Trachea midline. Cardiovascular: Well-perfused distal extremities. Regular rate and rhythm Respiratory: Nonlabored respiration. Clear lungs bilaterally Gastrointestinal: Nondistended abdomen. Urostomy present right lower quadrant with percutaneous pigtail catheter in place. Mild right-sided erythema. No fluctuance. No purulent drainage. There is mild associated tenderness. No pain out of proportion. No satellite lesions. Picture as follows: Musculoskeletal: No edema. Moving all 4 extremities spontaneously. Skin: Normal for age and race, grossly normal temperature and turgor. No acute rash. Neurologic: Alert and appropriate, no apparent acute deficits. Psychiatric: Mood and manner are appropriate. Grooming and personal hygiene are appropriate. Related Data Home Medications ?Medication ?Instructions ?Recorded ?Confirmed losartan 100 1 tab PO DAILY 09/13/12 12/13/23 mg-hydrochlorothiazide 25 mg tablet metoprolol tartrate 100 mg tablet 100 mg PO BID 09/13/12 12/13/23 apixaban 2.5 mg tablet (Eliquis) 2.5 mg PO BID 11/28/20 12/13/23 Allergies Allergy/AdvReac Type Severity Reaction Status Date / Time No Known Allergies Allergy Verified 12/13/23 08:46 General Stated Complaint: Urinary CHINYERE: 3 Course Vital Signs Vital signs: Vital Signs Temperature 36.4 C L 12/13/23 08:19 Pulse 71 12/13/23 08:19 Respiratory Rate 20 12/13/23 08:19 Blood Pressure 180/101 H 12/13/23 08:19 Pulse Oximetry 95 12/13/23 08:19 Temperature 36.4 C L 12/13/23 08:42 Temperature Source Tympanic 12/13/23 08:42 Pulse 75 12/13/23 08:42 Respiratory Rate 20 12/13/23 08:42 Respiratory Effort Normal 12/13/23 08:41 Blood Pressure 163/49 H 12/13/23 08:42 Pulse Oximetry 95 12/13/23 08:42 End Tidal Co2 4 12/13/23 08:19 Pain Level 0 12/13/23 08:42 Lab/Test Results Lab/Test Results: Laboratory Tests Range/Units 12/13/23 08:36 WBC (4.4-10.8) 10^3/uL 6.79 RBC (3.93-5.22) 10^6/uL 3.47 L Hgb (11.2-15.7) g/dL 11.8 Hct (36.0-46.0) % 35.5 L MCV (80-95) fL 102 H MCH (27.0-33.0) pg 34.0 H MCHC (32.0-36.0) % 33.2 RDW (11.7-14.6) % 13.3 Plt Count (130-400) 10^3/uL 177 MPV (8.0-11.0) fL 10.0 Immature Gran % % 0.3 Neutrophils % % 78.3 Lymphocytes % % 13.5 Monocytes % % 7.2 Eosinophils % % 0.4 Basophils % % 0.3 Nucleated RBC % (0.0-0.3) % 0.0 Absolute Neutrophils (1.2-6.7) 10^3/uL 5.31 Absolute Lymphocytes (1.2-3.4) 10^3/uL 0.92 L Absolute Monocytes (0.1-0.8) 10^3/uL 0.49 Absolute Eosinophils (0.0-0.7) 10^3/uL 0.03 Absolute Basophils (0.0-0.2) 10^3/uL 0.02 Medical Decision Making Quality:SDOH Health Related Social Needs: 2 No Data to Display PFSH All Active Problems (Updated 12/13/23 @ 13:13 by Blade Mesa MD) History of urostomy (Acute) Abdominal pain (Acute) Acute urinary retention (Acute) Hx of cataract surgery (Chronic) Hx of breast biopsy (Acute) Hx of elbow replacement (Acute) H/O coronary angiogram (Acute) History of total abdominal hysterectomy and bilateral salpingo-oophorectomy (Acute) Sacroiliitis (Acute) SVT (supraventricular tachycardia) (Chronic) Atrial fibrillation (Chronic) Asthma (Chronic) Celiac sprue (Acute) Peripheral neuropathy (Acute) Hydronephrosis (Acute) Osteoporosis (Chronic) Hypertension (Chronic) Impacted cerumen of both ears (Acute) Sensorineural hearing loss, bilateral (Acute 08/10/13) Sensorineural hearing loss (Acute 06/16/13) Impacted cerumen (Acute 06/16/13) Conductive hearing loss, external ear (Acute 08/10/13) Family History Father No problems noted. Mother No problems noted. Daughter Otosclerosis Social History Smoking/Tobacco Use Status: Never Smoking risk assessment performed?: Yes Alcohol Intake: never Drug use: Never Substance use type: does not use Household members: none Housing: apartment current occupation: retired What is your relationship status?: Panel score (0-1 are the most socially isolated patients): 0 Do you feel safe at home: Yes Do you feel safe in your relationship?: Yes
[2023-12-13 09:07] LABS: ALT 20 U/L (14-59); AST 24 U/L (15-37); Albumin 3.5 g/dL (3.4-5.0); Alkaline Phosphatase 81 U/L (46-116); Anion Gap 9.7 mmol/L (3-11); BUN 23 mg/dL (7-18); Bilirubin, Total 0.54 mg/dL (0.2-1.0); CO2 25.3 mmol/L (21.0-32.0); CREATININE 1.2 mg/dL (0.55-1.02); Calcium 9.3 mg/dL (8.5-10.1); Chloride 104 mmol/L (98-107); Estimated GFR 43.81 (mL/min/1.73m2); Glucose 142 mg/dL (74-106); Potassium 4.4 mmol/L (3.5-5.1); Sodium 139 mmol/L (136-145); Total Protein 7.6 g/dL (6.4-8.2); Troponin I 9 ng/L (<or=51)
[2023-12-13 09:54] LABS: Bilirubin Negative (Negative); Blood Trace-lysed (Negative); Clarity Cloudy (Clear); Glucose Negative (Negative); Ketones Negative (Negative); Leukocyte Esterase Small (Negative); Nitrite Negative (Negative); Urobilinogen 0.2 mg/dL (Up to 0.2)
[2023-12-13 10:03] LABS: Bacteria Moderate HPF (Negative); C & S Indicated? Yes; Crystals Negative HPF (Negative); Epithelial Cells Rare HPF (Negative); Mucus Negative (Negative)
[2023-12-13 10:11] LABS: Troponin I 10 ng/L (<or=51)
== END 2023-12-13 13:41 | disposition home or self-care (01) ==
PROVIDERS: Emergency Provider Emergency Medicine; PCP Internal Medicine
DX: R10.9 Unspecified abdominal pain (principal); Z98.890 Other specified postprocedural states
CPT/HCPCS: 80053; 87077; 93005; 99285; 74176; 81003; 81015; 84484; 85025; 87086; 87186; 93010; 99284

== ENCOUNTER 2024-01-13 12:59 | Outpatient (REF) | payer MEDICARE, BC, SELFPAY ==
[2024-01-13 19:11] LABS: Abs Immature Grans 0.02 10^3/uL (0.0-0.06); Absolute Basophil Count 0.02 10^3/uL (0.0-0.2); Absolute Eosinophil Count 0.08 10^3/uL (0.0-0.7); Absolute Lymphocyte Count 1.34 10^3/uL (1.2-3.4); Absolute Monocyte Count 0.43 10^3/uL (0.1-0.8); Absolute Neutrophil Count 3.35 10^3/uL (1.2-6.7); Basophils % 0.4 %; Eosinophils % 1.5 %; HCT 36.9 % (36.0-46.0); HGB 12.2 g/dL (11.2-15.7); Immature Grans % 0.4 %; Lymphocytes % 25.6 %; MCH 33.9 pg (27.0-33.0); MCHC 33.1 % (32.0-36.0); MCV 103 fL (80-95); MPV 11.2 fL (8.0-11.0); Monocytes % 8.2 %; Neutrophils % 63.9 %; Platelet Count 160 10^3/uL (130-400); RDW 13.1 % (11.7-14.6); RDW-SD 49.2 fL; WBC 5.24 10^3/uL (4.4-10.8)
[2024-01-13 20:02] LABS: Vitamin B12 251 pg/mL (193-986)
[2024-01-14 02:18] LABS: Anion Gap 9.7 mmol/L (3-11); BUN 27 mg/dL (7-18); CO2 25.3 mmol/L (21.0-32.0); CREATININE 1.2 mg/dL (0.55-1.02); Calcium 9.6 mg/dL (8.5-10.1); Chloride 106 mmol/L (98-107); Estimated GFR 43.81 (mL/min/1.73m2); Glucose 98 mg/dL (74-106); Potassium 4.7 mmol/L (3.5-5.1); Sodium 141 mmol/L (136-145)
== END 2024-01-13 13:00 | disposition home or self-care (01) ==
LOC: NCHCN 12:59
PROVIDERS: PCP Internal Medicine; Visit Provider Internal Medicine
DX: R42 Dizziness and giddiness (principal)
CPT/HCPCS: 80048; 82607; 85025

== ENCOUNTER 2024-03-31 19:34 | Emergency (ER) | payer MEDICARE, BC, SELFPAY ==
[2024-03-31 19:40] VITALS: BP 189/76; PULSE 68; RESP 16; TEMP 36.3; O2SAT 94
[2024-03-31 21:55] VITALS: BP 182/92; PULSE 64; RESP 16; TEMP 36.6; O2SAT 95
--- NOTE | 2024-03-31 21:59 | W.ED.GENAD ---
Discharge Plan Disposition Patient Disposition: Home Discharge Details Clinical Impression: Julien catheter problem Primary Care Provider: Wil Suarez ED Provider: Kelly Mckeon Home Meds and New Rx's Prescriptions: No Action Eliquis 2.5 mg tablet 2.5 mg PO BID losartan 100 mg tablet 100 mg PO DAILY albuterol sulfate 90 mcg/actuation HFA aerosol inhaler 2 puff inhalation Q6H PRN furosemide 20 mg tablet 20 mg PO DAILY eplerenone 25 mg tablet 25 mg PO DAILY Rx Instructions: TAKE ONE TABLET EVERY DAY IN MORNING. IF WEIGHT IS OVER 121 TAKE SECOND TABLET melatonin 5 mg capsule PO QHS PRN metoprolol tartrate 100 MG tablet 100 mg PO BID losartan-hydrochlorothiazide 1 EACH tablet 1 tab PO DAILY Discharge Instructions Additional Instructions: Please call your urologist first thing Wednesday morning to schedule follow-up appointment. Continue to keep an eye on your urine output. Stay well-hydrated, drinking plenty of fluids throughout the day. Return to emergency care if you develop new abdominal pain, new urinary retention/your bladder is not emptying via catheter, fever/chills, or if you are very worried and need to be rechecked again immediately Referrals: Wil Suarez [Primary Care Provider] - [facility] General Date/Time Provider Initiated Documentation: 03/31/24 19:40. [facility] Narrative: Dori is a 88 year old female who presents to the emergency department today for evaluation of urinary stoma not draining. She reports that it normally drains 525 mL twice a day, with a leg bag getting drained at noon and in the evening. This afternoon she drained the usual amount, but has had significantly decreased urine output since then. She has attempted to flush the catheter, is able to draw back the flush, but it does not drain out of the catheter into the leg bag. She denies associated fever/chills, nausea/vomiting, abdominal discomfort, change in urine color/cloudiness. Has overall been feeling well. Catheter was last changed yesterday; urology has recommended changing every 6 weeks. She has never had a similar issue, though does have a history of urinary retention in the past when she was self cathing. Past medical history is significant for celiac sprue anticoagulation with apixaban for A-fib, interstitial cystitis, bladder removal due to bladder cancer. Physical exam reassuring. Dori is alert and oriented, in no acute distress. Easy work of breathing, lung sounds clear bilaterally. Normal heart sounds. Moist mucous membranes. Abdomen is soft, nondistended, nontender to palpation. Catheter is able to be easily removed and the stoma, stoma appears healthy, no surrounding erythema or drainage. D/dx includes but is not limited to: urinary catheter blockage, bladder stones/kidney stones, kidney dysfunction, dehydration. Bladder US showed 290 cc urine in bladder. No red flags on history or physical exam concerning for acute systemic infection/surgical emergency. I independently interpreted the following tests: CBC BMP reassuring. Creatinine unchanged from previous. CT abdomen/pelvis performed, no acute changes from previous. While in the emergency department, Julien catheter was replaced via sterile technique with a 14 [place] Julien catheter, urine was drained and bladder scan showed no residual.. A mucous plug was noted at the tip of the Julien catheter, obstructing flow. A new leg bag was provided. Workup today reassuring, urinary retention consistent with obstructed Julien catheter. Blood pressure today was noted to be elevated, patient reports she is asymptomatic. She does have a history of elevated blood pressure, takes her antihypertensives in the morning. Recommended taking blood pressure meds in the morning as scheduled. Reviewed discharge instructions with patient, including importance of follow-up with urology and red flags indicating need for return to emergency care. She voices agreement with plan of care Related Data Home Medications ?Medication ?Instructions ?Recorded ?Confirmed losartan 100 1 tab PO DAILY 09/13/12 03/31/24 mg-hydrochlorothiazide 25 mg tablet metoprolol tartrate 100 mg tablet 100 mg PO BID 09/13/12 03/31/24 apixaban 2.5 mg tablet (Eliquis) 2.5 mg PO BID 11/28/20 03/31/24 albuterol sulfate 90 mcg/actuation 2 puff inhalation Q6H PRN 12/20/23 03/31/24 aerosol inhaler eplerenone 25 mg tablet 25 mg PO DAILY 12/20/23 03/31/24 furosemide 20 mg tablet 20 mg PO DAILY 12/20/23 03/31/24 losartan 100 mg tablet 100 mg PO DAILY 12/20/23 03/31/24 melatonin 5 mg capsule mg PO QHS PRN 12/20/23 Allergies Allergy/AdvReac Type Severity Reaction Status Date / Time No Known Allergies Allergy Verified 03/31/24 19:44 General Stated Complaint: Urinary CHINYERE: 4 Review of Systems Narrative: See HPI Exam Const General: cooperative, healthy appearing, comfortable, no acute distress, well developed and well groomed Nutritional Appearance: average body habitus and well nourished Orientation: oriented x3 Resp Effort & Inspection: normal respiratory effort and able to speak in complete sentences Auscultation: clear to auscultation bilaterally Cardio Rate: regular rate Rhythm: regular rhythm GI Inspection: normal to inspection and other (Healthy urinary stoma noted to right lower quadrant) Palpation: soft, not firm, not rigid and nontender General: No CVA tenderness Skin General skin exam: no rashes or lesions noted Course Vital Signs Vital signs: Vital Signs Temperature 36.3 C L 03/31/24 19:40 Pulse 68 03/31/24 19:40 Respiratory Rate 16 03/31/24 19:40 Blood Pressure 189/76 H 03/31/24 19:40 Pulse Oximetry 94 03/31/24 19:40 Temperature 36.6 C 03/31/24 21:55 Temperature Source Oral 03/31/24 21:55 Pulse 64 03/31/24 21:55 Respiratory Rate 16 03/31/24 21:55 Blood Pressure 182/92 H 03/31/24 21:55 Blood Pressure Position Sitting 03/31/24 21:55 Pulse Oximetry 95 03/31/24 21:55 Oxygen Delivery Method Room Air 03/31/24 21:55 Oxygen Flow Rate 0 03/31/24 19:40 Pain Level 0 03/31/24 19:40 Medical Decision Making Imaging Data Radiologic Study: Radiologist's impression: PROCEDURE INFORMATION: Exam: CT Abdomen And Pelvis Without Contrast Exam date and time: 03/31/2024 10:31 PM Age: 88 years old Clinical indication: Other: Urinary retention; Stoma TECHNIQUE: Imaging protocol: Computed tomography of the abdomen and pelvis without contrast. COMPARISON: CT ABDOMEN PELVIS WO 12/13/2023 9:57 AM FINDINGS: Lungs: Bandlike fibrosis and dependent atelectasis in the lung bases. Mild bronchiectasis in the right lower lobe. Heart: Moderate-severe cardiomegaly. Coronary arteries: Moderate coronary artery calcification in the RCA distribution. Esophagus: The visualized distal esophagus is largely contracted without gross abnormality. Liver: Normal contour. Subcentimeter 5 mm hypodensity in the lateral liver dome is too small to characterize well, unchanged from 12/13/2023, most likely an incidental cyst which does not require further assessment. No intrahepatic biliary ductal dilatation. Gallbladder and biliary ducts: The gallbladder is partially contracted but otherwise unremarkable. Nondilated common bile duct. Pancreas: Normal. No inflammatory changes or ductal dilation. Spleen: Normal. No splenomegaly. Adrenal glands: Normal. No adrenal mass. Kidneys and ureters: Chronic severe left hydronephrosis and moderate ureterectasis with severe chronic cortical thinning is unchanged from 12/13/2023, with no perinephric stranding to suggest acute obstructive uropathy. Right renal collecting system and ureter are nondilated. The right lower quadrant ileal conduit is moderately fluid distended but significantly decreased in caliber from 12/13/2023. There is a drainage catheter in the ileal conduit via the stoma. There is stomal calcification or suture material which is unchanged. Given the degree of fluid retention in the ileal conduit as well as the dilated appearance on multiple prior scans, this may indicate chronic stomal stricture currently relieved by the catheter placement, correlate clinically. Stomach and bowel: The stomach is largely contracted. The small bowel is nondilated with no acute abnormality. No acute colonic abnormalities. Moderate colonic diverticulosis without evidence of acute diverticulitis. Appendix: The appendix is not identified, likely surgically absent with evidence of proximal subtotal colectomy. Intraperitoneal space: No peritoneal free fluid or air. Vasculature: Severe calcific atherosclerosis. Moderate ectasia of the distal thoracic aorta. Lymph nodes: No adenopathy. Urinary bladder: Prior cystectomy. Reproductive: Prior hysterectomy. Bones/joints: No acute osseous abnormalities. Osteopenia. Moderate leftward convexity lumbar scoliosis. Moderate chronic appearing compression deformities involving the L3 and L2 vertebral bodies. Multilevel advanced lumbar disc osteoarthritic changes with facet hypertrophy. Soft tissues: No acute soft tissue abnormalities. IMPRESSION: 1. Prior cystectomy with ileal conduit and right lower quadrant urostomy again noted. 2. The ileal conduit demonstrates moderate fluid distension mild dilatation which is significantly improved from 12/13/2023, with a drainage catheter in the conduit via the stoma. 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 3. The previous right hydronephrosis is fully resolved and there is no evidence of acute obstructive uropathy in the kidneys/ureters currently. There is chronic severe left hydronephrosis with moderate hydroureter which is unchanged, with unchanged chronic severe renal cortical thinning on the left, suspicious for longstanding distal ureteral stricture near the conduit. 4. Additional nonemergent findings detailed above. Quality:SDOH Health Related Social Needs: No Data to Display PFSH All Active Problems (Updated 04/01/24 @ 00:19 by Kelly Steele) Julien catheter problem (Acute) Hx of cataract surgery (Chronic) Hx of breast biopsy (Acute) Hx of elbow replacement (Acute) H/O coronary angiogram (Acute) History of total abdominal hysterectomy and bilateral salpingo-oophorectomy (Acute) Sacroiliitis (Acute) SVT (supraventricular tachycardia) (Chronic) Atrial fibrillation (Chronic) Asthma (Chronic) Celiac sprue (Acute) Peripheral neuropathy (Acute) Hydronephrosis (Acute) Osteoporosis (Chronic) Hypertension (Chronic) Impacted cerumen of both ears (Acute) Sensorineural hearing loss, bilateral (Acute 08/10/13) Sensorineural hearing loss (Acute 06/16/13) Impacted cerumen (Acute 06/16/13) Conductive hearing loss, external ear (Acute 08/10/13) Family History Father No problems noted. Mother No problems noted. Daughter Otosclerosis Social History Smoking/Tobacco Use Status: Never Smoking risk assessment performed?: Yes Alcohol Intake: never Drug use: Never Substance use type: does not use Household members: none Housing: apartment current occupation: retired What is your relationship status?: Panel score (0-1 are the most socially isolated patients): 0 Do you feel safe at home: Yes Do you feel safe in your relationship?: Yes
--- NOTE | 2024-03-31 22:00 | DI.CT_ITS ---
Exam(s) CT ABDOMEN PELVIS WO EXAM: CT ABDOMEN PELVIS WO CLINICAL HISTORY: urinary retention; stoma. TECHNIQUE: Imaging Protocol: Axial computed tomography images with coronal and sagittal reformatted images were created and reviewed. Oral: no COMPARISON: CT CT ABDOMEN PELVIS WO from 12/13/2023 FINDINGS: Lung Bases: Dependent changes at the lung bases. Mild right lower lobe bronchiectasis. Heart is mar kedly enlarged. Throughout descending thoracic aorta dilated to 4.3 cm. Liver: Normal density. No suspicious mass. Gallbladder and biliary tract: No radiodense calculus or biliary dilation. Pancreas: Normal density. No abnormal calcifications or inflammatory process. Spleen: Normal. Kidneys: Severe left hydronephrosis with marked parenchymal thinning similar to prior. The right kid shannan is unremarkable. No radiodense stones. No suspicious masses seen. Adrenal glands: No masses seen. Lymph nodes: Within normal limits. Vasculature: Abdominal aorta non-dilated. Aorta and branch vessels are heavily calcified. Soft tissues: Unremarkable. Bladder: Status post cystectomy. Right lower quadrant neobladder again noted with catheter in place. The ileal conduit is somewhat distended however improved from the prior exam. A small amount of th e ileal conduit herniates through the stomal defect. Bowel: Bowel somewhat limited evaluation due to motion artifact. No obstruction or bowel wall thicke nii. Partial right colectomy. Diverticulosis noted throughout. Peritoneal cavity: No ascites. No focal collection. No mesenteric inflammatory response. Reproductive organs: Hysterectomy. Bones: Chronic compression fractures of L2 and L3. Scoliosis and advanced degenerative changes. Sta ble mild T12 compression fracture. IMPRESSION: Ileal conduit in place with drainage catheter. It is moderately distended but improved from prior. Small amount of the ileal conduit herniates through the stomal defect. The chronic severe left hydronephrosis with marked parenchymal thinning, stable. No right hydronephr osis. RADIATION DOSE DELIVERED: Total DLP DATA REPOSITORY: All CT scans at this facility are submitted to the National Radiology Data Registry (NRDR) Dose Index Registry (DIR) with the [employer] (A[employer]). RADIATION OPTIMIZATION: All CT scans at this facility use at least one of these dose optimization te chniques: automated exposure control; mA and/or kV adjustment per patient size (includes targeted exa ms where dose is matched to clinical indication); or iterative reconstruction.
[2024-03-31 22:13] LABS: Abs Immature Grans 0.02 10^3/uL (0.0-0.06); Absolute Basophil Count 0.02 10^3/uL (0.0-0.2); Absolute Eosinophil Count 0.07 10^3/uL (0.0-0.7); Absolute Lymphocyte Count 1.54 10^3/uL (1.2-3.4); Absolute Monocyte Count 0.45 10^3/uL (0.1-0.8); Absolute Neutrophil Count 4.57 10^3/uL (1.2-6.7); Basophils % 0.3 %; HCT 37.4 % (36.0-46.0); HGB 12.2 g/dL (11.2-15.7); Immature Grans % 0.3 %; Lymphocytes % 23.1 %; MCH 34.2 pg (27.0-33.0); MCHC 32.6 % (32.0-36.0); MCV 105 fL (80-95); Monocytes % 6.7 %; Neutrophils % 68.6 %; Platelet Count 153 10^3/uL (130-400); RBC 3.57 10^6/uL (3.93-5.22); RDW 13.5 % (11.7-14.6); RDW-SD 52.8 fL; WBC 6.67 10^3/uL (4.4-10.8)
[2024-03-31 22:26] LABS: Anion Gap 6.7 mmol/L (3-11); BUN 26 mg/dL (7-18); CO2 29.3 mmol/L (21.0-32.0); CREATININE 1.3 mg/dL (0.55-1.02); Calcium 9.5 mg/dL (8.5-10.1); Chloride 107 mmol/L (98-107); Glucose 110 mg/dL (74-106); Potassium 4.2 mmol/L (3.5-5.1); Sodium 143 mmol/L (136-145)
--- NOTE | 2024-03-31 23:19 | DI.VRAD_ITS ---
PROCEDURE INFORMATION: Exam: CT Abdomen And Pelvis Without Contrast Exam date and time: 03/31/2024 10:31 PM Age: 88 years old Clinical indication: Other: Urinary retention; Stoma TECHNIQUE: Imaging protocol: Computed tomography of the abdomen and pelvis without contrast. COMPARISON: CT ABDOMEN PELVIS WO 12/13/2023 9:57 AM FINDINGS: Lungs: Bandlike fibrosis and dependent atelectasis in the lung bases. Mild bronchiectasis in the right lower lobe. Heart: Moderate-severe cardiomegaly. Coronary arteries: Moderate coronary artery calcification in the RCA distribution. Esophagus: The visualized distal esophagus is largely contracted without gross abnormality. Liver: Normal contour. Subcentimeter 5 mm hypodensity in the lateral liver dome is too small to characterize well, unchanged from 12/13/2023, most likely an incidental cyst which does not require further assessment. No intrahepatic biliary ductal dilatation. Gallbladder and biliary ducts: The gallbladder is partially contracted but otherwise unremarkable. Nondilated common bile duct. Pancreas: Normal. No inflammatory changes or ductal dilation. Spleen: Normal. No splenomegaly. Adrenal glands: Normal. No adrenal mass. Kidneys and ureters: Chronic severe left hydronephrosis and moderate ureterectasis with severe chronic cortical thinning is unchanged from 12/13/2023, with no perinephric stranding to suggest acute obstructive uropathy. Right renal collecting system and ureter are nondilated. The right lower quadrant ileal conduit is moderately fluid distended but significantly decreased in caliber from 12/13/2023. There is a drainage catheter in the ileal conduit via the stoma. There is stomal calcification or suture material which is unchanged. Given the degree of fluid retention in the ileal conduit as well as the dilated appearance on multiple prior scans, this may indicate chronic stomal stricture currently relieved by the catheter placement, correlate clinically. Stomach and bowel: The stomach is largely contracted. The small bowel is nondilated with no acute abnormality. No acute colonic abnormalities. Moderate colonic diverticulosis without evidence of acute diverticulitis. Appendix: The appendix is not identified, likely surgically absent with evidence of proximal subtotal colectomy. Intraperitoneal space: No peritoneal free fluid or air. Vasculature: Severe calcific atherosclerosis. Moderate ectasia of the distal thoracic aorta. Lymph nodes: No adenopathy. Urinary bladder: Prior cystectomy. Reproductive: Prior hysterectomy. Bones/joints: No acute osseous abnormalities. Osteopenia. Moderate leftward convexity lumbar scoliosis. Moderate chronic appearing compression deformities involving the L3 and L2 vertebral bodies. Multilevel advanced lumbar disc osteoarthritic changes with facet hypertrophy. Soft tissues: No acute soft tissue abnormalities. IMPRESSION: 1. Prior cystectomy with ileal conduit and right lower quadrant urostomy again noted. 2. The ileal conduit demonstrates moderate fluid distension mild dilatation which is significantly improved from 12/13/2023, with a drainage catheter in the conduit via the stoma. 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 3. The previous right hydronephrosis is fully resolved and there is no evidence of acute obstructive uropathy in the kidneys/ureters currently. There is chronic severe left hydronephrosis with moderate hydroureter which is unchanged, with unchanged chronic severe renal cortical thinning on the left, suspicious for longstanding distal ureteral stricture near the conduit. 4. Additional nonemergent findings detailed above. Dictated and Authenticated by: Blade Pierre MD. Orderin Lucia Mendoza MD
[2024-04-01 00:47] VITALS: BP 193/60; PULSE 68; RESP 16; O2SAT 97
== END 2024-04-01 00:48 | disposition home or self-care (01) ==
PROVIDERS: Emergency Provider Nurse Practitioner Family; PCP Internal Medicine
DX: T83.098A Other mechanical complication of other urinary catheter, initial encounter (principal); I48.91 Unspecified atrial fibrillation; Z79.01 Long term (current) use of anticoagulants
CPT/HCPCS: 80048; 99284; 74176; 85025

== ENCOUNTER → 2024-07-24 10:52 | Outpatient (BNVA) | payer MEDICARE, BC, SELFPAY | PROVIDERS: PCP Internal Medicine; Referring Provider Internal Medicine; Visit Provider Nurse Practitioner Gerontology | DX: N13.30 Unspecified hydronephrosis (principal); N99.522 Malfunction of incontinent external stoma of urinary tract; Z96.0 Presence of urogenital implants | CPT/HCPCS: 99215 ==

== ENCOUNTER → 2024-08-14 13:51 | Outpatient (BNVA) | payer MEDICARE, BC, SELFPAY | PROVIDERS: PCP Internal Medicine; Referring Provider Internal Medicine; Visit Provider Nurse Practitioner Gerontology | DX: Z46.6 Encounter for fitting and adjustment of urinary device (principal); N13.30 Unspecified hydronephrosis; N99.522 Malfunction of incontinent external stoma of urinary tract; Z96.0 Presence of urogenital implants | CPT/HCPCS: 51702 ==

== ENCOUNTER → 2024-09-19 08:04 | Outpatient (BNVA) | payer MEDICARE, BC, SELFPAY | PROVIDERS: PCP Internal Medicine; Referring Provider Internal Medicine; Visit Provider Nurse Practitioner Gerontology | DX: N13.30 Unspecified hydronephrosis (principal); N99.522 Malfunction of incontinent external stoma of urinary tract; Z96.0 Presence of urogenital implants; Z46.6 Encounter for fitting and adjustment of urinary device | CPT/HCPCS: 51702 ==

== ENCOUNTER → 2024-10-31 08:05 | Outpatient (BNVA) | payer MEDICARE, BC, SELFPAY | PROVIDERS: PCP Internal Medicine; Referring Provider Internal Medicine; Visit Provider Nurse Practitioner Gerontology | DX: N13.30 Unspecified hydronephrosis (principal); N99.522 Malfunction of incontinent external stoma of urinary tract; Z96.0 Presence of urogenital implants | CPT/HCPCS: 51702 ==

== ENCOUNTER → 2024-12-12 08:00 | Outpatient (BNVA) | payer MEDICARE, BC, SELFPAY | PROVIDERS: PCP Internal Medicine; Referring Provider Internal Medicine; Visit Provider Nurse Practitioner Gerontology | DX: N13.30 Unspecified hydronephrosis (principal); N99.522 Malfunction of incontinent external stoma of urinary tract; Z96.0 Presence of urogenital implants; Z46.6 Encounter for fitting and adjustment of urinary device | CPT/HCPCS: 51702 ==

== ENCOUNTER 2025-01-15 15:07 | Outpatient (REF) | payer MEDICARE, BC, SELFPAY ==
[2025-01-15 19:34] LABS: HCT 38.0 % (36.0-46.0); HGB 12.5 g/dL (11.2-15.7); MCH 33.7 pg (27.0-33.0); MCHC 32.9 % (32.0-36.0); MCV 102 fL (80-95); MPV 11.3 fL (8.0-11.0); Platelet Count 141 10^3/uL (130-400); RBC 3.71 10^6/uL (3.93-5.22); RDW 13.3 % (11.7-14.6); RDW-SD 50.5 fL; WBC 4.89 10^3/uL (4.4-10.8)
[2025-01-15 19:50] LABS: ALT 10 U/L (10-49); AST 22 U/L (<34); Albumin 4.1 g/dL (3.4-5.0); Alkaline Phosphatase 69 U/L (46-116); Anion Gap 9.1 mmol/L (3-11); BUN 28 mg/dL (9-23); Bilirubin, Total 0.50 mg/dL (0.2-1.2); CO2 24.9 mmol/L (20.0-31.0); Calcium 9.6 mg/dL (8.3-10.6); Chloride 110 mmol/L (98-107); Glucose 116 mg/dL (74-106); Potassium 4.1 mmol/L (3.5-5.1); Sodium 144 mmol/L (136-145); Total Protein 7.1 g/dL (5.7-8.2)
[2025-01-15 19:52] LABS: Vitamin B12 338 pg/mL (211-911)
== END 2025-01-15 15:08 | disposition home or self-care (01) ==
LOC: NCHCN 15:07
PROVIDERS: PCP Internal Medicine; Visit Provider Internal Medicine
DX: Z79.01 Long term (current) use of anticoagulants (principal); E53.8 Deficiency of other specified B group vitamins
CPT/HCPCS: 80053; 85027; 82607

== ENCOUNTER → 2025-01-24 08:36 | Outpatient (BNVA) | payer MEDICARE, BC, SELFPAY | PROVIDERS: PCP Internal Medicine; Referring Provider Internal Medicine; Visit Provider Nurse Practitioner Gerontology | DX: N13.30 Unspecified hydronephrosis (principal); Z46.6 Encounter for fitting and adjustment of urinary device; N99.522 Malfunction of incontinent external stoma of urinary tract; Z96.0 Presence of urogenital implants | CPT/HCPCS: 51702 ==